=== PATIENT | female | born 1960 | race Caucasian/White ===

== ENCOUNTER 2016-04-05 09:10 | Emergency (ER) | payer BC ==
[2016-04-05 10:02] VITALS: BP 140/81
[2016-04-05] MEDS ORDERED: Albuterol 2.5 MG/3 ML NEB.SOL* (0.083%) INH ONE (10:54)
--- NOTE | 2016-04-05 10:58 | UC ---
Respiratory Complaint HPI - HPI Summary HPI Summary: Pt treated for bronchitis by PCP with z pack and prednisone. no relief. cough and SOB is worse, denies fever. - History of Current Complaint Chief Complaint: UCRespiratory Stated Complaint: BRONCHITIS Time Seen by Provider: 04/05/16 10:46 Hx Obtained From: Patient ?: No Onset/Duration: Gradual Onset, Lasting Weeks Timing: Constant Severity Initially: Mild Severity Currently: Severe Pain Intensity: 8 Pain Scale Used: 0-10 Numeric Character: Cough: Productive Aggravating Factors: Exertion, Deep Breaths, Recumbent Position Alleviating Factors: Nothing Associated Signs And Symptoms: Positive: Dyspnea, Wheezing, URI - Risk Factors Pulmonary Embolism Risk Factors: Negative Cardiac Risk Factors: Negative Pseudomonas Risk Factors: Negative Tuberculosis Risk Factors: Negative - Allergies/Home Medications Allergies/Adverse Reactions: Allergies Allergy/AdvReac Type Severity Reaction Status Date / Time No Known Allergies Allergy Verified 04/05/16 09:48 Home Medications: Home Medications Azithromycin TAB* [Zithromax TAB (Z-MARCELA)*] 250 mg PO DAILY 04/05/16 [History Confirmed 04/05/16] predniSONE TAB* [Deltasone TAB*] 10 mg PO DAILY 04/05/16 [History Confirmed 05/21] PMH/Surg Hx/FS Hx/Imm Hx Previously Healthy: Yes - Surgical History Surgical History: Yes Surgery Procedure, Year, and Place: tonsillectomy. laparoscopy. lumpectomy. SX FOR FX'D LEFT WRIST - Family History Known Family History: Negative: Hypertension, Blood Disorder - Social History Alcohol Use: Daily Alcohol Amount: 1 glass wine most nights Substance Use Type: None Smoking Status (MU): Never Smoked Tobacco - Immunization History Most Recent Influenza Vaccination: 2016 Review of Systems Constitutional: Fatigue Skin: Negative Eyes: Negative ENT: Negative Respiratory: Shortness Of Breath, Cough Cardiovascular: Negative Gastrointestinal: Negative Genitourinary: Negative Motor: Negative Neurovascular: Negative Musculoskeletal: Negative Neurological: Negative Psychological: Negative All Other Systems Reviewed And Are Negative: Yes Physical Exam Triage Information Reviewed: Yes Appearance: Well-Appearing, Well-Nourished, Ill-Appearing, Pain Distress Vital Signs: Initial Vital Signs Temp 98.1 F 04/05/16 09:49 Pulse 64 04/05/16 09:49 Resp 18 04/05/16 09:49 BP 140/81 04/05/16 09:49 Pulse Ox 100 01/02/17 09:49 Vital Signs Reviewed: Yes Eye Exam: Normal Eyes: Positive: Conjunctiva Clear ENT Exam: Normal ENT: Positive: Pharynx normal, Nasal congestion, TMs normal Dental Exam: Normal Neck exam: Normal Neck: Positive: Supple, Nontender, No Lymphadenopathy Respiratory: Positive: Chest non-tender, No accessory muscle use, Decreased breath sounds, Stridor, Wheezing, Inspiration Cardiovascular Exam: Normal Cardiovascular: Positive: RRR, No Murmur, Pulses Normal Abdominal Exam: Normal Abdomen Description: Positive: Nontender, No Organomegaly, Soft Bowel Sounds: Positive: Present Musculoskeletal Exam: Normal Musculoskeletal: Positive: Strength Intact, ROM Intact, No Edema Neurological Exam: Normal Neurological: Positive: Alert, Muscle Tone Normal Psychological Exam: Normal Psychological: Positive: Age Appropriate Behavior Skin Exam: Normal UC Diagnostic Evaluation - Laboratory O2 Sat by Pulse Oximetry: 100 Respiratory Course/Dx - Course Course Of Treatment: hx obtained, exam performed, nebulaizer given, chest xray obtained, no active disease, hyperinflation noted. albuterol and prednisone given.. - Differential Dx/Diagnosis Differential Diagnosis/HQI/PQRI: Asthma, Bronchitis, Pulmonary Edema, Lower Resp Infection, Pulmonary Embolism Provider Diagnoses: hyperinflation of the lungs. cough Discharge - Discharge Plan Condition: Stable Disposition: HOME Patient Education Materials: Bronchospasm (ED) Additional Instructions: take medication as prescribed. follow up with your PCP if you are having symptoms after treatment resolved. any sever Respiratory distress report to ER.
--- NOTE | 2016-04-05 11:10 | RAD ---
Indication: Shortness of breath. 2 views of the chest are reviewed including dual energy PA views. No mediastinal shift is noted. Lung marcial appear hyperinflated. There is no pleural fluid, pneumonia or pneumothorax. IMPRESSION: No active cardiopulmonary disease is noted although there is hyperinflation noted.
== END 2016-04-05 11:50 | disposition home or self-care (01) ==
LOC: UCCORT 09:10
DX: J98.4 Other disorders of lung (principal); R05 Cough; R09.81 Nasal congestion; R53.83 Other fatigue
CPT/HCPCS: 71020; 94640; 99212; G0463

== ENCOUNTER 2017-04-09 18:05 | Emergency (ER) | payer OTHER ==
--- NOTE | 2017-04-09 18:28 | UC ---
Throat Pain/Nasal Federico HPI - HPI Summary HPI Summary: 56 year old female presents with complains left wrist and foot pain. - History of Current Complaint Stated Complaint: SORE THROAT/FEVER Time Seen by Provider: 04/09/17 18:28 Hx Obtained From: Patient Onset/Duration: Sudden Onset Severity: Moderate Pain Scale Used: 0-10 Numeric - 7 Cough: Nonproductive Associated Signs & Symptoms: Positive: Negative - Epiglottits Risk Factors Epiglottis Risk Factors: Negative - Allergies/Home Medications Allergies/Adverse Reactions: Allergies Allergy/AdvReac Type Severity Reaction Status Date / Time No Known Allergies Allergy Verified 04/09/17 19:03 Home Medications: Home Medications Acetaminophen W/ Codeine [Acetaminophen/Codeine #3 300-30 mg] 1 tab PO Q6HR PRN 04/09/17 [History Confirmed 04/09/17] Acetaminophen [Acetaminophen Extra Stren] 500 mg PO Q6HR PRN 04/09/17 [History Confirmed 04/09/17] Ibuprofen [Advil] 800 mg PO Q8HR PRN 04/09/17 [History Confirmed 04/09/17] PMH/Surg Hx/FS Hx/Imm Hx Previously Healthy: Yes - Surgical History Surgical History: Yes Surgery Procedure, Year, and Place: tonsillectomy. laparoscopy. lumpectomy. SX FOR FX'D LEFT WRIST - Family History Known Family History: Negative: Hypertension, Blood Disorder - Social History Alcohol Use: Daily Alcohol Amount: 1 glass wine most nights Substance Use Type: None Smoking Status (MU): Never Smoked Tobacco - Immunization History Most Recent Influenza Vaccination: 2016 Review of Systems Constitutional: Negative Skin: Negative Eyes: Negative ENT: Negative Respiratory: Negative Cardiovascular: Negative Gastrointestinal: Negative Genitourinary: Negative Motor: Negative Neurovascular: Negative Musculoskeletal: Other: - left wrist pain left foot pain Neurological: Negative Psychological: Negative All Other Systems Reviewed And Are Negative: Yes Physical Exam Triage Information Reviewed: Yes Vital Signs Reviewed: Yes Eye Exam: Normal ENT Exam: Normal Dental Exam: Normal Neck exam: Normal Neck: Positive: 1 Respiratory Exam: Normal Cardiovascular Exam: Normal Abdominal Exam: Normal Musculoskeletal: Positive: Other: - left wrist pain left foot pain Neurological Exam: Normal Psychological Exam: Normal Skin Exam: Normal Throat Pain/Nasal Course/Dx - Differential Dx/Diagnosis Provider Diagnoses: left wrist. left foot pain Discharge - Discharge Plan Condition: Stable Disposition: HOME Prescriptions: Meloxicam(NF) [Mobic(NF)] 7.5 mg PO BID #30 tab Patient Education Materials: Foot Sprain (ED), Wrist Sprain (ED) Referrals: Rito Gresham MD [Medical Doctor] - Jaswant Rodríguez PA [Primary Care Provider] -
[2017-04-09 19:03] VITALS: BP 136/74
--- NOTE | 2017-04-09 19:36 | RAD ---
INDICATION: Left foot injury. TECHNIQUE: 3 views of the left foot were obtained. FINDINGS: The bones are in normal alignment. No fracture is seen. Joint spaces appear maintained. IMPRESSION: NO EVIDENCE FOR FRACTURE. IF THE PATIENT'S SYMPTOMS PERSIST, RECOMMEND FOLLOW-UP IMAGING.
--- NOTE | 2017-04-09 19:41 | RAD ---
INDICATION: Left wrist injury. TECHNIQUE: 3 views of the left wrist were obtained. FINDINGS: There is mild soft tissue swelling. The bones are normal alignment. No fracture is seen. There is a relatively lucent area in the distal radial metaphysis likely incidental although nonspecific. Joint spaces appear maintained. IMPRESSION: 1. NO EVIDENCE FOR FRACTURE. 2. NONSPECIFIC LUCENT AREA IN THE DISTAL RADIAL METAPHYSIS CONSIDER EITHER A BONE SCAN OR MRI OF THE WRIST FOR FURTHER EVALUATION.
--- NOTE | 2017-04-10 16:29 | UC ---
- Progress Note Progress Note: Spoke with Patient regarding lucent area in wrist--She tells me she had screws in that wrist that were removed by Dr. Neal. She is call and follow up with him -Margaret Tineo
== END 2017-04-09 20:15 | disposition home or self-care (01) ==
LOC: UCCORT 18:05
DX: M25.532 Pain in left wrist (principal); M79.672 Pain in left foot
CPT/HCPCS: 99213; G0463

== ENCOUNTER 2017-05-20 07:00 | Emergency (ER) | payer BC, OTHER ==
[2017-05-20 07:27] VITALS: BP 113/76
--- NOTE | 2017-05-20 07:51 | ED ---
GI/ HPI - HPI Summary HPI Summary: 56 yr old female with work up for microscopic hematuria by her pmd the past couple weeks, presents here with suprapubic discomfort. Denies fever, chills. Symptoms are moderate. Denies frequency, urgency, back pain, feeling ill, nausea, vomiting. - History of Current Complaint Chief Complaint: UCGU Time Seen by Provider: 05/20/17 07:40 Stated Complaint: URINARY Pain Intensity: 5 - Allergy/Home Medications Allergies/Adverse Reactions: Allergies Allergy/AdvReac Type Severity Reaction Status Date / Time No Known Allergies Allergy Verified 05/20/17 07:24 PMH/Surg Hx/FS Hx/Imm Hx - Cancer History Cancer Type, Location and Year: hx breast ca - Surgical History Surgery Procedure, Year, and Place: tonsillectomy. laparoscopy. lumpectomy. SX FOR FX'D LEFT WRIST Infectious Disease History: No Infectious Disease History: Denies: Traveled Outside the [place] in Last 30 Days - Family History Known Family History: Negative: Hypertension, Blood Disorder - Social History Alcohol Use: Occasionally Alcohol Amount: 1 glass wine most nights Substance Use Type: Reports: None Smoking Status (MU): Never Smoked Tobacco Review of Systems Constitutional: Negative Positive: other - suprapubic pain All Other Systems Reviewed And Are Negative: Yes Physical Exam Triage Information Reviewed: Yes Vital Signs On Initial Exam: Initial Vitals Temp Pulse Resp BP Pulse Ox 98 F 63 16 113/76 99 05/20/17 07:20 05/20/17 07:20 05/20/17 07:20 05/20/17 07:20 05/20/17 07:20 Vital Signs Reviewed: Yes Appearance: Positive: Well-Appearing, No Pain Distress Skin: Positive: Skin Color Reflects Adequate Perfusion Head/Face: Positive: Normal Head/Face Inspection Eyes: Positive: EOMI Respiratory/Lung Sounds: Positive: Clear to Auscultation, Breath Sounds Present Cardiovascular: Positive: RRR. Negative: Murmur Abdomen Description: Positive: Other: - suprapubic tenderness Musculoskeletal: Positive: Strength/ROM Intact Neurological: Positive: Sensory/Motor Intact, Alert, Oriented to Person Place, Time, CN Intact II-III Psychiatric: Positive: Normal - [place] Coma Scale Best Eye Response: 4 - Spontaneous Best Motor Response: 6 - Obeys Commands Best Verbal Response: 5 - Oriented Coma Scale Total: 15 Diagnostics - Vital Signs Vital Signs Temp Pulse Resp BP Pulse Ox 05/20/17 07:20 98 F 63 16 113/76 99 - Laboratory Lab Results: Lab Results 05/20/17 Range/Units 07:29 POC Urine Color Yellow POC Urine Clarity Clear POC Urine pH 7.0 (5-9) POC Ur Specif [place] 1.015 (1.010-1.030) POC Urine Protein Negative (Negative) POC Ur Glucose (UA) Negative (Negative) POC Urine Ketones Negative (Negative) POC Urine Blood 1+ H (Negative) POC Urine Nitrite Negative (Negative) POC Urine Bilirubin Negative (Negative) POC Urine Urobilinogen 0.2 (Negative) POC U Leukocyte Esteras Trace H (Negative) Lab Statement: Any lab studies that have been ordered have been reviewed, and results considered in the medical decision making process. GIGU Course/Dx - Course Course Of Treatment: 56 yr old female with UTI. Rx bactrim. She will continue follow ing up with her PMD for her work up. - Diagnoses Provider Diagnoses: UTI (urinary tract infection) Discharge - Discharge Plan Condition: Good Disposition: HOME Prescriptions: Sulfamethox/Trimethoprim DS* [Bactrim DS 800/160 TAB*] 1 tab PO BID #10 tab Patient Education Materials: Urinary Tract Infection in Women (ED) Referrals: Jaswant Rodríguez PA [Primary Care Provider] - 2 Days
== END 2017-05-20 07:53 | disposition home or self-care (01) ==
LOC: UCCORT 07:00
DX: N39.0 Urinary tract infection, site not specified (principal)
CPT/HCPCS: 81003; 87086; 99212; G0463